=== PATIENT | female | born 1960 | race Caucasian/White ===

== ENCOUNTER → 2017-10-07 11:17 | Outpatient (CLI) | payer OTHER, SELFPAY ==
[2017-10-07 12:29] LABS: Add Manual Diff / Slide Review NO; Basophils Percent Auto 0.7 % (0-2); Eosinophils Percent Auto 0.6 % (2-4); Hematocrit 37.8 % (36-46); Hemoglobin 13.2 g/dL (12.0-16.0); Lymphocytes Percent Auto 17.7 % (25-40); Mean Corpuscular HGB Conc 34.9 % (30-36); Mean Corpuscular Hemoglobin 32.1 PG (26-34); Mean Corpuscular Volume 91.9 fL (80-100); Monocytes Percent Auto 9.5 % (3-14); Neutrophils Absolute Auto 2300 /uL (3000-5900); Neutrophils Percent Auto 71.5 % (50-75); Platelet Count 191 X10^3/uL (150-400); Red Blood Cell Count 4.11 X10^6/uL (4.0-5.2); White Blood Cell Count 3.3 X10^3/uL (4.5-11.0)
[2017-10-07 12:41] LABS: Appearance Urine UA CLEAR; Bilirubin Urine UA NEGATIVE (NEGATIVE); Color Urine UA YELLOW; Glucose Urine UA NEGATIVE (Normal); Ketones Urine UA NEGATIVE (NEGATIVE); Leukocyte Esterase Urine UA NEGATIVE (NEGATIVE); Nitrite Urine UA NEGATIVE (NEGATIVE); Occult Blood Urine UA NEGATIVE (Negative); Protein Urine UA NEGATIVE (Negative); Specific Gravity Urine UA <=1.005 (1.000-1.035); Urobilinogen Urine UA 0.2 E.U./dL (0.2)
[2017-10-07 12:52] LABS: Urine Comments Microscopic Normal
[2017-10-07 12:58] LABS: Alanine Aminotransferase 51 IU/L (9-52); Albumin 4.6 g/dL (3.5-5.0); Albumin Globulin Ratio 1.3 (1.0-2.8); Alkaline Phosphatase 52 U/L (38-126); Aspartate Aminotransferase 46 IU/L (14-36); BUN Creatinine Ratio 21.4 (6-22); Bilirubin Total 0.6 mg/dL (0.2-1.3); Calcium 9.5 mg/dL (8.4-10.2); Estimated Glomerular Filt Rate > 60.0 mL/min (>60); Globulin 3.5 g/dL (1.7-4.1); Glucose 80 mg/dL (70-100); HEMOLYSIS < 15 (0-50); Potassium 4.2 mmol/L (3.4-5.1); Rheumatoid Factor 17.9 IU/mL (<12.0); Sodium 134 mmol/L (137-145); Total Protein 8.1 g/dL (6.3-8.2)
[2017-10-07 13:00] LABS: C-Reactive Protein Quant < 0.5 mg/dL (<1.0); Erythrocyte Sedimentation Rate 25 MM/HR (0-20)
[2017-10-09 15:39] LABS: Complement C3 90 mg/dL (83-193)
[2017-10-09 15:44] LABS: Immunoglobulin A 170 mg/dL (81-463); Immunoglobulin G 1785 mg/dL (694-1618); Immunoglobulin M, Quantitative 129 mg/dL (48-271)
[2017-10-16 12:30] LABS: Albumin 4.3 g/dL (3.8-4.8); Alpha 1 Globulin 0.3 g/dL (0.2-0.3); Beta 1 Globulin 0.4 g/dL (0.4-0.6); Gamma Globulin 1.7 g/dL (0.8-1.7); Protein, Total 7.7 g/dL (6.1-8.1)
[2017-10-19 13:17] LABS: Alpha 2 Globulin 0.7
== END ==
PROVIDERS: PCP Family Medicine; Visit Provider Family Medicine
DX: M35.00 Sjogren syndrome, unspecified (principal); D70.9 Neutropenia, unspecified; I73.00 Raynaud's syndrome without gangrene; R77.8 Other specified abnormalities of plasma proteins
CPT/HCPCS: 36415; 80053; 81001; 82595; 82784; 84155; 84165; 85025; 85651; 86140; 86160; 86335; 86430

== ENCOUNTER → 2017-10-13 08:45 | Outpatient (CLI) | payer OTHER, SELFPAY | PROVIDERS: PCP Family Medicine; Visit Provider Family Medicine | DX: D70.9 Neutropenia, unspecified (principal); M35.00 Sjogren syndrome, unspecified | CPT/HCPCS: 82595 ==

== ENCOUNTER → 2018-04-19 08:42 | Outpatient (CLI) | payer OTHER, SELFPAY ==
[2018-04-19 08:58] LABS: Bacteria Urine None Seen
[2018-04-19 09:28] LABS: Add Manual Diff / Slide Review NO; Eosinophils Percent Auto 2.7 % (2-4); Hematocrit 38.4 % (36-46); Hemoglobin 12.9 g/dL (12.0-16.0); Lymphocytes Percent Auto 27.1 % (25-40); Mean Corpuscular HGB Conc 33.5 % (30-36); Mean Corpuscular Hemoglobin 31.1 PG (26-34); Mean Corpuscular Volume 93.1 fL (80-100); Monocytes Percent Auto 14.6 % (3-14); Neutrophils Absolute Auto 1200 /uL (3000-5900); Neutrophils Percent Auto 54.6 % (50-75); Platelet Count 197 X10^3/uL (150-400); Red Blood Cell Count 4.13 X10^6/uL (4.0-5.2); Red Cell Distribution Width 13.3 % (11.6-14.8); White Blood Cell Count 2.2 X10^3/uL (4.5-11.0)
[2018-04-19 09:42] LABS: Alanine Aminotransferase 45 IU/L (9-52); Albumin 4.6 g/dL (3.5-5.0); Albumin Globulin Ratio 1.2 (1.0-2.8); Alkaline Phosphatase 43 U/L (38-126); Aspartate Aminotransferase 40 IU/L (14-36); BUN Creatinine Ratio 15.7 (6-22); Bilirubin Total 0.3 mg/dL (0.2-1.3); Blood Urea Nitrogen 11 mg/dL (7-17); Calcium 9.1 mg/dL (8.4-10.2); Carbon Dioxide 29 mmol/L (22-32); Chloride 102 mmol/L (98-107); Estimated Glomerular Filt Rate > 60.0 mL/min (>60); Globulin 3.7 g/dL (1.7-4.1); Glucose 93 mg/dL (70-100); HEMOLYSIS < 15 (0-50); Potassium 3.8 mmol/L (3.4-5.1); Sodium 141 mmol/L (137-145); Total Protein 8.3 g/dL (6.3-8.2)
[2018-04-19 09:46] LABS: High Sensitivity CRP - Cardiac 0.7 mg/L (1.0-3.0); Rheumatoid Factor 14.1 IU/mL (<12.0)
[2018-04-19 10:03] LABS: Erythrocyte Sedimentation Rate 45 MM/HR (0-20)
[2018-04-19 12:21] LABS: Appearance Urine UA CLEAR; Bilirubin Urine UA NEGATIVE (NEGATIVE); Color Urine UA YELLOW; Glucose Urine UA NEGATIVE (Normal); Ketones Urine UA NEGATIVE (NEGATIVE); Leukocyte Esterase Urine UA NEGATIVE (NEGATIVE); Nitrite Urine UA NEGATIVE (Negative); Occult Blood Urine UA NEGATIVE (Negative); Protein Urine UA NEGATIVE (Negative); Specific Gravity Urine UA <=1.005 (1.000-1.035); Urobilinogen Urine UA 0.2 E.U./dL (0.2)
[2018-04-19 13:08] LABS: Culture Indicated Urine Cult Not Indicated; RBC Urine 0-1/HPF (0-5/HPF); Squamous Epithelial Cell Urine 0-1 /HPF; Urine Comments Microscopic Normal; WBC Urine 0-1/HPF (0-5/HPF)
[2018-04-21 14:39] LABS: Complement C3 99 mg/dL (83-193)
[2018-04-21 14:43] LABS: Immunoglobulin A 180 mg/dL (81-463); Immunoglobulin G, Quantitative 1770 mg/dL (694-1618); Immunoglobulin M, Quantitative 134 mg/dL (48-271)
[2018-04-22 14:00] LABS: Albumin 4.2 g/dL (3.8-4.8); Alpha 1 Globulin 0.3 g/dL (0.2-0.3); Alpha 2 Globulin 0.7 g/dL (0.5-0.9); Beta 1 Globulin 0.4 g/dL (0.4-0.6); Gamma Globulin 1.7 g/dL (0.8-1.7); Protein, Total 7.6 g/dL (6.1-8.1)
[2018-04-24 23:31] LABS: Cryoglobulin, Qualitative NEGATIVE
== END ==
PROVIDERS: PCP Family Medicine; Visit Provider Family Medicine
DX: M35.00 Sjogren syndrome, unspecified (principal); I73.00 Raynaud's syndrome without gangrene; D70.9 Neutropenia, unspecified; R77.8 Other specified abnormalities of plasma proteins
CPT/HCPCS: 36415; 80053; 81001; 82595; 82784; 84155; 84165; 85025; 85651; 86140; 86160; 86335; 86430

== ENCOUNTER → 2018-09-01 10:37 | Outpatient (CLI) | payer OTHER, SELFPAY ==
--- NOTE | 2018-09-01 | DI.US.S_ITS ---
PROCEDURE: US ABDOMEN COMPLETE INDICATIONS: RIGHT UPPER QUADRANT PAIN TECHNIQUE: Real-time scanning was performed of the abdominal and retroperitoneal organs, with image documentation. COMPARISON: None. FINDINGS: Liver: Liver is normal in size and homogeneous in echotexture. Gallbladder: No gallstones identified. Normal gallbladder wall. No pericholecystic fluid. Negative sonographic Aguila sign. Biliary ducts: Intrahepatic bile ducts are non-dilated. Extrahepatic bile duct caliber measures 3.0 mm. Normal is 6-7 mm or less in diameter, or 10 mm or less post-cholecystectomy. Pancreas: Visualized portions of the pancreas are sonographically normal. Spleen: Spleen is normal in size and homogeneous in echotexture. Kidneys: Kidneys are normal in size and echotexture. Right kidney measures 11.0 cm long; left kidney measures 9.7 cm long. No hydronephrosis or nephrolithiasis. No solid masses. Right extrarenal pelvis incidentally noted. Aorta: Visualized aorta is normal in caliber at less than 3 cm. Iliacs: Proximal common iliac arteries are normal in caliber at less than 2.5 cm. IVC: Intrahepatic inferior vena cava is patent. Miscellaneous: No free abdominal fluid. IMPRESSION: No source for right upper quadrant pain identified sonographically. Dictated by: Yves GROVES Interpreted: Raya Baker MD on 09/01/2018 at 13:09 Approved by: Raya Baker MD, PhD on 09/01/2018 at 17:34
== END ==
PROVIDERS: PCP Family Medicine; Visit Provider Nurse Practitioner Family
DX: R10.11 Right upper quadrant pain (principal)
CPT/HCPCS: 76700

== ENCOUNTER → 2018-12-07 12:38 | Outpatient (CLI) | payer OTHER, SELFPAY ==
--- NOTE | 2018-12-07 | DI.MRI.S_ITS ---
PROCEDURE: MR HAND LT WO/W CON INDICATIONS: Left hand pain TECHNIQUE: Coronal and axial T1 spin echo and T2 fast spin echo with fat saturation. Post-contrast coronal and axial T1 spin echo with fat saturation images through the left hand and wrist. COMPARISON: None. FINDINGS: Image quality: Diagnostic. Bones: There is no acute fracture, dislocation, or suspicious osseous lesion involving the osseous structures of the left hand. No abnormal osseous enhancement is appreciated. Mild degenerative changes of the left hand are present, most pronounced involving the joints of the thumb. Small rounded foci of subtle enhancement with corresponding mild edema are present involving the heads of the 1st, 3rd, 4th, and 5th metacarpals. Soft tissues: No soft tissue masses or loculated fluid collections are appreciated. There is moderate edema noted involving the extensor carpi ulnaris tendon sheath with corresponding enhancement. No definite additional areas of synovial enhancement are appreciated involving the other tendon sheaths. Otherwise, the flexor and extensor tendons are within normal limits. No significant muscle atrophy involving the intrinsic muscles of the hand are present. Please note that the ligamentous structures of the hand are not adequately evaluated. No significant joint effusions are appreciated. IMPRESSION: 1. Mild degenerative changes of the hands are most pronounced involving the joint of the thumb. 2. Subtle erosive changes involving the 1st, 3rd, 4th, and 5th metacarpals may be related to conventional osteoarthritis. However, clinical correlation to exclude an inflammatory arthropathy is recommended. 3. Mild edema and enhancement of the extensor carpi ulnaris tendon sheath may represent tenosynovitis. Clinical correlation to exclude an inflammatory process is recommended. Dictated by: Kaden Morales M.D. on 12/08/2018 at 8:26 Approved by: Kaden Morales M.D. on 12/08/2018 at 8:29
--- NOTE | 2018-12-07 | DI.MRI.S_ITS ---
PROCEDURE: MR HAND RT WO/W CON INDICATIONS: RIGHT HAND PAIN TECHNIQUE: Coronal and axial T1 spin echo and T2 fast spin echo with fat saturation. Post-contrast coronal and axial T1 spin echo with fat saturation images through the right hand and wrist. COMPARISON: None. FINDINGS: Image quality: Diagnostic. Bones and joints: No acute fracture, dislocation, or suspicious osseous lesion is evident involving the osseous structures of the right hand. Mild to moderate degenerative changes of the hand are most pronounced involving the 2nd metacarpophalangeal joint. Degenerative cystic changes versus solutions involving the heads of the 1st, 2nd, 3rd, and 4th metacarpals is present with corresponding marrow edema and enhancement. Moderate synovial enhancement involving the 2nd and 5th metacarpophalangeal joints is present without a large joint effusion. Soft tissues: The no soft tissue masses or loculated fluid collections are identified. No suspicious soft tissue enhancement is appreciated. Again, there is synovial enhancement involving the 2nd and 5th metacarpophalangeal joints. No large joint effusions are present. Note is also made of mild increased signal and peritendinous edema/enhancement of the extensor carpi ulnaris tendon. No significant muscle atrophy is evident involving the intrinsic muscles of the hand. IMPRESSION: 1. Mild to moderate degenerative changes of the right hand are most pronounced involving the 2nd metacarpophalangeal joint. 2. Probable erosive changes involving the heads of the 1st through 4th metacarpals is suspicious for an inflammatory arthropathy. 3. Moderate synovial enhancement involving the 2nd and 5th metacarpophalangeal joints also suspicious for an inflammatory process. Dictated by: Kaden Morales M.D. on 12/08/2018 at 9:17 Approved by: Kaden Morales M.D. on 12/08/2018 at 9:22
--- NOTE | 2018-12-07 | DI.MRI.S_ITS ---
PROCEDURE: MR WRIST RT WO/W CON INDICATIONS: RIGHT WRIST PAIN TECHNIQUE: Noncontrast coronal proton density fast spin echo and T2 fast spin echo with fat saturation; coronal 3-D gradient echo, axial T1 spin echo and T2 fast spin echo with fat saturation, axial T1 spin echo with fat saturation, sagittal T1 spin echo through the wrist. Post-contrast axial, coronal, and sagittal T1 spin echo with fat saturation through the wrist. COMPARISON: [facility], MR, MR WRIST LT WO/W CON, 12/07/2018, 13:48. FINDINGS: Image quality: Diagnostic. Bones: No acute fracture, dislocation, or suspicious osseous lesion is identified involving the osseous structures of the right wrist. No abnormal osseous enhancement is present. Bony alignment is within normal limits. No significant degenerative changes of the wrist are evident. Mild degenerative changes are present involving the basal joint of the thumb. Subtle marrow edema is identified involving the proximal pole of the scaphoid, triquetrum, and the lunate. There may be minimal degenerative cystic change involving the triquetrum and lunate. No significant joint effusions are present. Carpal ligaments: Evaluation of the extrinsic and intrinsic ligaments of the wrist is difficult without intra-articular contrast. No full-thickness tears involving the scapholunate or lunotriquetral ligaments is suspected. No acute injuries involving the dorsal or volar extrinsic ligaments is present. Triangular fibrocartilage complex: Evaluation of the triangular fibrocartilage complex is suboptimal without intra-articular contrast. Slight heterogeneity of the disc is present along the periphery without a discrete tear evident. The meniscal homolog appears to be intact. There is mild increased signal involving the extensor carpi ulnaris tendon at the level of the ulnar styloid process. Moderate peritendinitis edema and corresponding enhancement is evident involving the adjacent soft tissues and the tendon sheath. Tendons and soft tissues: No soft tissue masses or enhancing masses are present within the wrist. Again, the extensor carpi ulnaris tendon is abnormal, as described above. The remainder of the extensor and flexor tendons of the wrist are within normal limits. There is slight convex bulge of the flexor retinaculum through the carpal tunnel with thickening and increased signal noted involving the median nerve. No minor streaky ence canal is slightly prominent, but otherwise unremarkable. No large ganglion cysts are evident. IMPRESSION: 1. 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 2. Questionable subtle erosive changes involving the lunate and triquetrum. 3. Mild to moderate extensor carpi ulnaris tendinopathy with corresponding edema and enhancement of the tendon sheath and peritendinous soft tissues may represent tenosynovitis. Local correlation to exclude an inflammatory process is recommended. 4. Prominence of the median nerve within the carpal tunnel. Clinical correlation to exclude carpal tunnel syndrome is recommended. Dictated by: Kaden Morales M.D. on 12/08/2018 at 8:46 Approved by: Kaden Morales M.D. on 12/08/2018 at 8:58
--- NOTE | 2018-12-07 | DI.MRI.S_ITS ---
PROCEDURE: MR WRIST LT WO/W CON INDICATIONS: LEFT WRIST PAIN TECHNIQUE: Noncontrast coronal proton density fast spin echo and T2 fast spin echo with fat saturation; coronal 3-D gradient echo, axial T1 spin echo and T2 fast spin echo with fat saturation, axial T1 spin echo with fat saturation, sagittal T1 spin echo through the wrist. Post-contrast axial, coronal, and sagittal T1 spin echo with fat saturation through the wrist. COMPARISON: None. FINDINGS: Image quality: Diagnostic. Bones: No acute fracture, dislocation, or suspicious osseous lesion is evident involving the osseous structures of the wrist. Bony alignment is within normal limits. However, there is slight ulnar minus variance by approximately 2-3 mm. No significant joint effusions are present. There mild degenerative changes noted involving the basal joint of the thumb. Cystic changes involving the base of the trapezium are present with corresponding mild marrow edema. There is also marrow edema and possible subtle cystic change involving the lunate. No suspicious osseous enhancement is present. No significant joint effusions are evident. Carpal ligaments: Evaluation of the extrinsic and intrinsic ligaments of the wrist is difficult without intra-articular contrast. However, there is mild heterogeneity noted involving the scapholunate ligament with slight increased signal present. A similar appearance, to a lesser degree, is present involving the lunotriquetral ligament. No complete tears are evident. No acute injuries are evident involving the extrinsic ligaments of the wrist. Triangular fibrocartilage complex: Evaluation of the triangular fibrocartilage complex is suboptimal without intra-articular contrast. However, no definite full-thickness tear of the triangular fibrocartilage disc is evident. The meniscal homolog appears to be within normal limits. There is increased signal and thickening involving the extensor carpi ulnaris tendon with prominent peritendinous edema and corresponding enhancement. Tendons and soft tissues: Again, there is increased signal involving the extensor carpi ulnaris tendon with corresponding peritendinous edema and enhancement. No additional areas of significant soft tissue enhancement or edema are present. There is slight increased signal evident involving the extensor tendons of the 1st extensor compartment. Otherwise, the remainder of the extensor and flexor tendons of the hand are within normal limits. No fluid collections are appreciated. The median nerve is mildly enlarged through the region of the carpal tunnel. There is slight convex bowing of the flexor retinaculum. No significant atrophy is appreciated involving the intrinsic muscles of the wrist. No large ganglion cysts are evident. IMPRESSION: 1. Mild degenerative changes of the wrist. 2. Cystic changes involving the trapezium and lunate may represent developing erosions from an inflammatory arthropathy versus degenerative cystic change from the conventional osteoarthritis. Please correlate clinically. 3. Mild to moderate extensor carpi ulnaris tendinopathy with corresponding prominent edema and enhancement of the tendon sheath and peritendinous soft tissues. This is suspicious for possible inflammatory process and clinical correlation is recommended. 4. Heterogeneity of the scapholunate and lunotriquetral ligaments without full-thickness tears. 5. Mild ulnar minus variance. 6. Prominence of the median nerve through the carpal tunnel. Clinical correlation to exclude carpal tunnel syndrome is recommended. Dictated by: Kaden Morales M.D. on 12/08/2018 at 8:33 Approved by: Kaden Morales M.D. on 12/08/2018 at 8:39
== END ==
PROVIDERS: PCP Family Medicine; Visit Provider Internal Medicine Rheumatology
DX: M79.641 Pain in right hand (principal); M79.642 Pain in left hand; M25.531 Pain in right wrist; M25.532 Pain in left wrist
CPT/HCPCS: 73220; 73223; A9579

== ENCOUNTER → 2019-03-07 09:13 | Outpatient (CLI) | payer OTHER, SELFPAY ==
[2019-03-07 09:30] LABS: RBC Urine None Seen (0-5/HPF); WBC Urine None Seen (0-5/HPF)
[2019-03-07 09:53] LABS: Add Manual Diff / Slide Review NO; Basophils Absolute Auto 0 /uL (0-100); Basophils Percent Auto 1.1 % (0-2); Eosinophils Absolute Auto 100 /uL (0-450); Eosinophils Percent Auto 2.2 % (2-4); Hematocrit 38.2 % (36-46); Lymphocytes Absolute Auto 400 /uL (1100-4500); Lymphocytes Percent Auto 16.5 % (25-40); Mean Corpuscular HGB Conc 33.9 % (30-36); Mean Corpuscular Hemoglobin 31.3 PG (26-34); Mean Corpuscular Volume 92.4 fL (80-100); Monocytes Absolute Auto 300 /uL (0-900); Monocytes Percent Auto 13.4 % (3-14); Neutrophils Absolute Auto 1600 /uL (1500-7000); Neutrophils Percent Auto 66.8 % (50-75); Platelet Count 189 X10^3/uL (150-400); Red Blood Cell Count 4.14 X10^6/uL (4.0-5.2); Red Cell Distribution Width 13.7 % (11.6-14.8); White Blood Cell Count 2.4 X10^3/uL (4.5-11.0)
[2019-03-07 10:28] LABS: Erythrocyte Sedimentation Rate 19 MM/HR (0-20)
[2019-03-07 10:42] LABS: Alanine Aminotransferase 40 IU/L (9-52); Albumin 4.8 g/dL (3.5-5.0); Albumin Globulin Ratio 1.4 (1.0-2.8); Alkaline Phosphatase 44 U/L (38-126); Aspartate Aminotransferase 39 IU/L (14-36); BUN Creatinine Ratio 18.3 (6-22); Bilirubin Total 0.5 mg/dL (0.2-1.3); Blood Urea Nitrogen 11 mg/dL (7-17); Calcium 9.6 mg/dL (8.4-10.2); Carbon Dioxide 27 mmol/L (22-32); Chloride 98 mmol/L (98-107); Estimated Glomerular Filt Rate > 60.0 mL/min (>60); Globulin 3.4 g/dL (1.7-4.1); Glucose 84 mg/dL (70-100); HEMOLYSIS < 15 (0-50); Sodium 137 mmol/L (137-145); Total Protein 8.2 g/dL (6.3-8.2)
[2019-03-07 10:48] LABS: High Sensitivity CRP - Cardiac 0.7 mg/L (1.0-3.0); Rheumatoid Factor 13.5 IU/mL (<12.0)
[2019-03-07 11:40] LABS: Appearance Urine UA CLEAR; Bilirubin Urine UA NEGATIVE (NEGATIVE); Color Urine UA YELLOW; Glucose Urine UA NEGATIVE (Negative); Ketones Urine UA NEGATIVE (NEGATIVE); Leukocyte Esterase Urine UA NEGATIVE (NEGATIVE); Nitrite Urine UA NEGATIVE (Negative); Occult Blood Urine UA NEGATIVE (Negative); Protein Urine UA NEGATIVE (Negative); Specific Gravity Urine UA <=1.005 (1.000-1.035); Urobilinogen Urine UA 0.2 E.U./dL (0.2)
[2019-03-07 11:59] LABS: pH Urine UA 7.5 (4.5-8.0)
[2019-03-07 12:00] LABS: Bacteria Urine Few (2-10); Culture Indicated Urine Cult Not Indicated; Squamous Epithelial Cell Urine 1-5 /HPF (0-5/HPF)
[2019-03-09 14:07] LABS: Complement C3 102 mg/dL (83-193)
[2019-03-09 14:11] LABS: Immunoglobulin A 186 mg/dL (47-310); Immunoglobulin G, Quantitative 1748 mg/dL (600-1640); Immunoglobulin M, Quantitative 124 mg/dL (50-300)
[2019-03-10 17:52] LABS: Albumin 100 %; Protein/ Creatinine Ratio 247 mg/g creat (21-161); Total Urine Protein 4 mg/dL (5-24); Urine Creatinine, Random 16 mg/dL (20-275)
[2019-03-13 10:54] LABS: Albumin 4.5 g/dL (3.8-4.8); Alpha 1 Globulin 0.3 g/dL (0.2-0.3); Alpha 2 Globulin 0.7 g/dL (0.5-0.9); Beta 1 Globulin 0.4 g/dL (0.4-0.6); Gamma Globulin 1.7 g/dL (0.8-1.7); Protein, Total 7.9 g/dL (6.1-8.1)
[2019-03-13 11:03] LABS: Cryoglobulin, Qualitative NEGATIVE
== END ==
PROVIDERS: PCP Family Medicine; Visit Provider Family Medicine
DX: M35.00 Sjogren syndrome, unspecified (principal); I73.00 Raynaud's syndrome without gangrene; D70.9 Neutropenia, unspecified; R77.8 Other specified abnormalities of plasma proteins
CPT/HCPCS: 36415; 80053; 81001; 82595; 82784; 84155; 84156; 84165; 84166; 85025; 85651; 86140; 86160; 86430

== ENCOUNTER → 2019-03-21 10:33 | Outpatient (CLI) | payer OTHER, SELFPAY ==
[2019-03-21 15:11] LABS: Creatinine Urine Random 9.8 mg/dL; Protein (Total) Urine Random 15 mg/dL (0-12); Protein Creatinine Ratio Urine 1.53 GRAM/24H
== END ==
PROVIDERS: PCP Family Medicine; Visit Provider Internal Medicine Rheumatology
DX: M05.79 Rheumatoid arthritis with rheumatoid factor of multiple sites without organ or systems involvement (principal); R80.8 Other proteinuria
CPT/HCPCS: 82570; 84156

== ENCOUNTER → 2019-08-01 14:12 | Outpatient (CLI) | payer OTHER, SELFPAY ==
--- NOTE | 2019-08-01 | DI.US.S_ITS ---
LIMITED ULTRASOUND OF LEFT BREAST: 08/01/2019 CLINICAL: Focal left breast pain. Comparison is made to exams dated: 08/01/2019 mammogram - [facility], 01/14/2017 mammogram, 03/26/2015 mammogram, and 11/29/2012 mammogram - [facility]. Real-time ultrasound of the left breast upper outer quadrant was performed. Mccall scale images of the real-time examination were reviewed. No significant abnormalities were seen sonographically in the left breast. Specifically, no finding to correspond to the patient's pain. IMPRESSION: NEGATIVE There is no mammographic or sonographic evidence of malignancy. Return to annual mammogram screening schedule is recommended. Findings and recommendations were conveyed to the patient at time of exam. This exam was interpreted at Station ID: [id number]. Electronically Signed By: Angy garcia/:08/01/2019 15:41:54 letter sent: Normal Exam Ultrasound BI-RADS: 1 Negative
--- NOTE | 2019-08-01 14:30 | DI.MG.S_ITS ---
BILATERAL DIGITAL DIAGNOSTIC MAMMOGRAM 3D/2D: 08/01/2019 CLINICAL: Left breast pain. Comparison is made to exams dated: 01/14/2017 mammogram, 03/26/2015 mammogram, and 11/29/2012 mammogram - [facility]. The tissue of both breasts is extremely dense, which lowers the sensitivity of mammography. No significant masses, calcifications, or other findings are seen in either breast. Specifically, no finding to correspond to the patient's pain. IMPRESSION: INCOMPLETE: NEEDS ADDITIONAL IMAGING EVALUATION There is no abnormality seen in the left breast to correspond with the pain in the superior lateral quadrant, however, ultrasound is recommended. This was performed immediately following this exam. This exam was interpreted at Station ID: [id number]. NOTE: For mammograms, a report in lay terms will be sent to the patient. Approximately 15% of breast malignancies will not be visualized mammographically. In the management of a palpable breast mass, a negative mammogram must not discourage biopsy of a clinically suspicious lesion. Electronically Signed By: Angy garcia/:08/01/2019 15:32:14 ACR BI-RADS Category 0: Incomplete 3340F
== END ==
PROVIDERS: PCP Family Medicine; Referring Provider Family Medicine; Visit Provider Family Medicine
DX: R92.8 Other abnormal and inconclusive findings on diagnostic imaging of breast (principal); N64.4 Mastodynia
CPT/HCPCS: 76642; 77066; G0279

== ENCOUNTER → 2020-10-11 12:47 | Outpatient (CLI) | payer OTHER, SELFPAY ==
--- NOTE | 2020-10-11 12:50 | DI.US.S_ITS ---
ULTRASOUND OF LEFT BREAST: 10/11/2020 CLINICAL: Focal left breast pain. Comparison is made to exams dated: 10/11/2020 mammogram, 08/01/2019 ultrasound, 08/01/2019 mammogram - [facility], 01/14/2017 mammogram, and 01/14/2017 mammogram - [facility]. Doppler ultrasound of the left breast was performed. Mccall scale images of the real-time examination were reviewed. No abnormality which corresponds with the area of pain is identified. IMPRESSION: NEGATIVE There is no sonographic evidence of malignancy. There is no abnormality seen in the left breast to correspond with the pain at 1 o'clock, however, clinical correlation is recommended. A 1 year screening mammogram is recommended. This exam was interpreted at Station ID: [id number]. Electronically Signed By: Kenney Tompkins acr/:10/11/2020 17:35:04 letter sent: Clinical Evaluation Ultrasound BI-RADS: 1 Negative
--- NOTE | 2020-10-11 12:50 | DI.MG.S_ITS ---
BILATERAL DIGITAL DIAGNOSTIC MAMMOGRAM 3D/2D: 10/11/2020 CLINICAL: Pain in the left breast. Comparison is made to exams dated: 08/01/2019 mammogram - [facility], 01/14/2017 mammogram, 01/14/2017 mammogram, and 03/26/2015 mammogram - [facility]. The tissue of both breasts is extremely dense, which lowers the sensitivity of mammography. No significant masses, calcifications, or other findings are seen in either breast. No abnormality which corresponds with the area of pain is identified. IMPRESSION: INCOMPLETE: NEEDS ADDITIONAL IMAGING EVALUATION There is no abnormality seen in the left breast to correspond with the pain in the upper outer quadrant, however, ultrasound is recommended. This exam was interpreted at Station ID: [id number]. NOTE: For mammograms, a report in lay terms will be sent to the patient. Approximately 15% of breast malignancies will not be visualized mammographically. In the management of a palpable breast mass, a negative mammogram must not discourage biopsy of a clinically suspicious lesion. Electronically Signed By: Kenney Tompkins acr/:10/11/2020 14:11:31 Entry: - 10/14/2020 10:08:03 ACR BI-RADS Category 0: Incomplete [id number]
== END ==
PROVIDERS: PCP Family Medicine; Referring Provider Physician Assistant Medical; Visit Provider Physician Assistant Medical
DX: R92.2 Inconclusive mammogram (principal); N64.4 Mastodynia
CPT/HCPCS: 76642; 77066; G0279

== ENCOUNTER → 2021-01-17 09:48 | Outpatient (CLI) | payer OTHER, SELFPAY ==
[2021-01-17 21:50] LABS: COVID19 - ORCAS (NP or Nasal) Negative (Negative)
== END ==
PROVIDERS: PCP Family Medicine; Visit Provider Family Medicine
DX: Z20.822 Contact with and (suspected) exposure to COVID-19 (principal)
CPT/HCPCS: U0003

== ENCOUNTER → 2021-01-20 08:50 | Outpatient (CLI) | payer OTHER, SELFPAY ==
[2021-01-20 21:02] LABS: COVID19 - ORCAS (NP or Nasal) Negative (Negative)
== END ==
PROVIDERS: PCP Family Medicine; Referring Provider Physician Assistant; Visit Provider Physician Assistant
DX: Z20.822 Contact with and (suspected) exposure to COVID-19 (principal)
CPT/HCPCS: U0003

== ENCOUNTER → 2021-01-31 09:19 | Outpatient (CLI) | payer OTHER, SELFPAY ==
[2021-01-31 09:45] LABS: Bacteria Urine None Seen; RBC Urine None Seen (0-5/HPF)
[2021-01-31 10:46] LABS: Add Manual Diff / Slide Review NO; Basophils Absolute Auto 0 /uL (0-100); Basophils Percent Auto 0.9 % (0-2); Eosinophils Absolute Auto 100 /uL (0-450); Eosinophils Percent Auto 2.8 % (2-4); Hematocrit 39.6 % (36-46); Hemoglobin 13.2 g/dL (12.0-16.0); Lymphocytes Absolute Auto 500 /uL (1100-4500); Lymphocytes Percent Auto 18.9 % (25-40); Mean Corpuscular HGB Conc 33.4 % (30-36); Mean Corpuscular Hemoglobin 31.1 PG (26-34); Mean Corpuscular Volume 93.3 fL (80-100); Monocytes Absolute Auto 300 /uL (0-900); Monocytes Percent Auto 13.2 % (3-14); Neutrophils Absolute Auto 1700 /uL (1500-7000); Neutrophils Percent Auto 64.2 % (50-75); Platelet Count 195 X10^3/uL (150-400); Red Blood Cell Count 4.25 X10^6/uL (4.0-5.2); Red Cell Distribution Width 12.8 % (11.6-14.8); White Blood Cell Count 2.6 X10^3/uL (4.5-11.0)
[2021-01-31 11:09] LABS: Alanine Aminotransferase 37 IU/L (<35); Albumin 4.8 g/dL (3.5-5.0); Albumin Globulin Ratio 1.5 (1.0-2.8); Alkaline Phosphatase 45 U/L (38-126); Aspartate Aminotransferase 38 IU/L (14-36); BUN Creatinine Ratio 15.2 (6-22); Bilirubin Total 0.5 mg/dL (0.2-1.3); Blood Urea Nitrogen 10 mg/dL (7-17); C-Reactive Protein Quant < 0.5 mg/dL (<1.0); Calcium 9.9 mg/dL (8.4-10.2); Carbon Dioxide 26 mmol/L (22-32); Chloride 101 mmol/L (98-107); Estimated Glomerular Filt Rate > 60.0 mL/min (>60); Globulin 3.1 g/dL (1.7-4.1); Glucose 82 mg/dL (70-100); HEMOLYSIS < 15 (0-50); Potassium 4.2 mmol/L (3.4-5.1); Sodium 134 mmol/L (137-145); Total Protein 7.9 g/dL (6.3-8.2)
[2021-01-31 11:10] LABS: Rheumatoid Factor 10.1 IU/mL (<12.0)
[2021-01-31 11:35] LABS: Erythrocyte Sedimentation Rate 14 MM/HR (0-20)
[2021-01-31 12:47] LABS: Bilirubin Urine UA NEGATIVE (NEGATIVE); Color Urine UA YELLOW; Glucose Urine UA NEGATIVE (Negative); Ketones Urine UA NEGATIVE (NEGATIVE); Leukocyte Esterase Urine UA 1+ (NEGATIVE); Nitrite Urine UA NEGATIVE (Negative); Occult Blood Urine UA NEGATIVE (Negative); Protein Urine UA NEGATIVE (Negative); Specific Gravity Urine UA <=1.005 (1.000-1.035); Urobilinogen Urine UA 0.2 E.U./dL (0.2)
[2021-01-31 13:05] LABS: Appearance Urine UA CLOUDY; pH Urine UA 7.5 (4.5-8.0)
[2021-01-31 13:11] LABS: Culture Indicated Urine Specimen Cultured; WBC Urine 5-10/HPF (0-5/HPF)
[2021-01-31 16:01] LABS: Creatinine Urine Random 16.7 mg/dL; Protein (Total) Urine Random 13 mg/dL (0-12); Protein Creatinine Ratio Urine 0.77 GRAM/24H
[2021-02-01 07:58] LABS: Complement C3 99 mg/dL (82-167); Immunoglobulin A 163 mg/dL (87-352); Immunoglobulin G, Quantitative 1524 mg/dL (586-1602); Immunoglobulin M, Quantitative 97 mg/dL (26-217)
[2021-02-01 20:07] LABS: DNA (DS) Antibody <1 IU/mL (0-9)
[2021-02-01 21:52] LABS: Free Kappa Lt Chains, Serum 23.3 mg/L (3.3-19.4)
[2021-02-04 12:53] LABS: M-Spike % Not Observed % (Not Observed); Urine Total Protein <4.0 mg/dL (Not Estab.)
[2021-02-04 15:13] LABS: Albumin 4.2 g/dL (2.9-4.4); Alpha-1-Globulin 0.2 g/dL (0.0-0.4); Alpha-2-Globulin 0.6 g/dL (0.4-1.0); Gamma Globulin 1.6 g/dL (0.4-1.8); Globulin Total 3.3 g/dL (2.2-3.9); Protein, Total 7.5 g/dL (6.0-8.5)
== END ==
PROVIDERS: PCP Family Medicine; Referring Provider Internal Medicine Rheumatology; Visit Provider Internal Medicine Rheumatology
DX: M05.79 Rheumatoid arthritis with rheumatoid factor of multiple sites without organ or systems involvement (principal); M35.01 Sjogren syndrome with keratoconjunctivitis; Z79.899 Other long term (current) drug therapy; R77.8 Other specified abnormalities of plasma proteins; R76.8 Other specified abnormal immunological findings in serum
CPT/HCPCS: 36415; 80053; 81001; 82570; 82784; 83883; 84155; 84156; 84165; 84166; 85025; 85651; 86140; 86160; 86225; 86430; 87086

== ENCOUNTER → 2021-07-11 10:24 | Outpatient (CLI) | payer OTHER, SELFPAY ==
[2021-07-11 11:49] LABS: Add Manual Diff / Slide Review NO; Basophils Absolute Auto 0 /uL (0-100); Basophils Percent Auto 1.1 % (0-2); Eosinophils Absolute Auto 100 /uL (0-450); Eosinophils Percent Auto 3.8 % (2-4); Hematocrit 39.2 % (36-46); Hemoglobin 13.2 g/dL (12.0-16.0); Lymphocytes Absolute Auto 600 /uL (1100-4500); Lymphocytes Percent Auto 24.9 % (25-40); Mean Corpuscular HGB Conc 33.7 % (30-36); Mean Corpuscular Hemoglobin 31.3 PG (26-34); Mean Corpuscular Volume 93.1 fL (80-100); Monocytes Absolute Auto 300 /uL (0-900); Monocytes Percent Auto 11.1 % (3-14); Neutrophils Absolute Auto 1500 /uL (1500-7000); Neutrophils Percent Auto 59.1 % (50-75); Platelet Count 173 X10^3/uL (150-400); Red Blood Cell Count 4.21 X10^6/uL (4.0-5.2); Red Cell Distribution Width 12.7 % (11.6-14.8); White Blood Cell Count 2.6 X10^3/uL (4.5-11.0)
[2021-07-11 11:59] LABS: Appearance Urine UA CLEAR; Bilirubin Urine UA NEGATIVE (NEGATIVE); Color Urine UA YELLOW; Glucose Urine UA NEGATIVE (Negative); Ketones Urine UA NEGATIVE (NEGATIVE); Leukocyte Esterase Urine UA 3+ (NEGATIVE); Nitrite Urine UA NEGATIVE (Negative); Occult Blood Urine UA NEGATIVE (Negative); Protein Urine UA NEGATIVE (Negative); Specific Gravity Urine UA <=1.005 (1.000-1.035); Urobilinogen Urine UA 0.2 E.U./dL (0.2)
[2021-07-11 12:04] LABS: Alanine Aminotransferase 34 IU/L (<35); Albumin 4.8 g/dL (3.5-5.0); Albumin Globulin Ratio 1.4 (1.0-2.8); Alkaline Phosphatase 40 U/L (38-126); Aspartate Aminotransferase 38 IU/L (14-36); BUN Creatinine Ratio 16.9 (6-22); Bilirubin Total 0.6 mg/dL (0.2-1.3); Blood Urea Nitrogen 12 mg/dL (7-17); C-Reactive Protein Quant < 0.5 mg/dL (<1.0); Calcium 9.6 mg/dL (8.4-10.2); Carbon Dioxide 30 mmol/L (22-32); Chloride 98 mmol/L (98-107); Estimated Glomerular Filt Rate > 60.0 mL/min (>60); Globulin 3.4 g/dL (1.7-4.1); Glucose 79 mg/dL (70-100); HEMOLYSIS < 15 (0-50); Potassium 3.9 mmol/L (3.4-5.1); Sodium 134 mmol/L (137-145); Total Protein 8.2 g/dL (6.3-8.2)
[2021-07-11 12:06] LABS: Rheumatoid Factor 11.6 IU/mL (<12.0)
[2021-07-11 12:14] LABS: Bacteria Urine Moderate (10-30); Culture Indicated Urine Specimen Cultured; RBC Urine None Seen (0-5/HPF); Squamous Epithelial Cell Urine 1-5 /HPF (0-5/HPF); WBC Urine 30-100/HPF (0-5/HPF)
[2021-07-11 12:16] LABS: Free T4, Direct Thyroxine 1.14 ng/dL (0.78-2.19)
[2021-07-11 12:21] LABS: Erythrocyte Sedimentation Rate 14 MM/HR (0-20)
[2021-07-11 12:30] LABS: Thyroid Stimulating Hormone 2.56 uIU/mL (0.47-4.68)
[2021-07-15 13:09] LABS: M-Spike % Not Observed % (Not Observed)
[2021-07-17 07:40] LABS: Complement C3 127 mg/dL (82-167)
[2021-07-18 13:00] LABS: Albumin 4.2 g/dL (2.9-4.4); Alpha-1-Globulin 0.3 g/dL (0.0-0.4); Alpha-2-Globulin 0.7 g/dL (0.4-1.0); Gamma Globulin 1.5 g/dL (0.4-1.8); Globulin Total 3.4 g/dL (2.2-3.9); Immunoglobulin A, Serum 185 mg/dL (87-352); Immunoglobulin G,Serum 1569 mg/dL (586-1602); Immunoglobulin M, Serum 109 mg/dL (26-217); Protein, Total 7.6 g/dL (6.0-8.5)
== END ==
PROVIDERS: Family Medicine; PCP Physician Assistant Medical; Referring Provider Internal Medicine Rheumatology; Visit Provider Internal Medicine Rheumatology
DX: M35.01 Sjogren syndrome with keratoconjunctivitis (principal); M05.79 Rheumatoid arthritis with rheumatoid factor of multiple sites without organ or systems involvement; Z51.81 Encounter for therapeutic drug level monitoring; Z79.899 Other long term (current) drug therapy; R53.83 Other fatigue
CPT/HCPCS: 36415; 80053; 81001; 82784; 84155; 84156; 84165; 84166; 84439; 84443; 85025; 85651; 86140; 86160; 86334; 86335; 86430; 87086

== ENCOUNTER → 2022-03-16 11:06 | Outpatient (CLI) | payer OTHER, SELFPAY ==
[2022-03-16 11:57] LABS: Add Manual Diff / Slide Review NO; Basophils Absolute Auto 0 /uL (0-100); Basophils Percent Auto 1.1 % (0-2); Eosinophils Absolute Auto 100 /uL (0-450); Eosinophils Percent Auto 2.2 % (2-4); Hematocrit 36.8 % (36-46); Hemoglobin 12.6 g/dL (12.0-16.0); Lymphocytes Absolute Auto 700 /uL (1100-4500); Lymphocytes Percent Auto 28.7 % (25-40); Mean Corpuscular HGB Conc 34.2 % (30-36); Mean Corpuscular Hemoglobin 31.8 PG (26-34); Mean Corpuscular Volume 93.1 fL (80-100); Monocytes Absolute Auto 300 /uL (0-900); Monocytes Percent Auto 12.4 % (3-14); Neutrophils Absolute Auto 1300 /uL (1500-7000); Neutrophils Percent Auto 55.6 % (50-75); Platelet Count 217 X10^3/uL (150-400); Red Blood Cell Count 3.96 X10^6/uL (4.0-5.2); Red Cell Distribution Width 12.6 % (11.6-14.8); White Blood Cell Count 2.4 X10^3/uL (4.5-11.0)
[2022-03-16 12:01] LABS: Appearance Urine UA CLEAR; Bilirubin Urine UA NEGATIVE (NEGATIVE); Color Urine UA YELLOW; Glucose Urine UA NEGATIVE (Negative); Ketones Urine UA NEGATIVE (NEGATIVE); Leukocyte Esterase Urine UA NEGATIVE (NEGATIVE); Nitrite Urine UA NEGATIVE (Negative); Occult Blood Urine UA NEGATIVE (Negative); Protein Urine UA NEGATIVE (Negative); Specific Gravity Urine UA <=1.005 (1.000-1.035); Urobilinogen Urine UA 0.2 E.U./dL (0.2)
[2022-03-16 12:05] LABS: Bacteria Urine None Seen; Culture Indicated Urine Cult Not Indicated; RBC Urine None Seen (0-5/HPF); Urine Comments Microscopic Normal; WBC Urine None Seen (0-5/HPF)
[2022-03-16 12:22] LABS: Erythrocyte Sedimentation Rate 24 MM/HR (0-20)
[2022-03-16 12:32] LABS: Creatinine Urine Random 15.2 mg/dL
[2022-03-16 12:36] LABS: Alanine Aminotransferase 29 IU/L (<35); Albumin 4.5 g/dL (3.5-5.0); Albumin Globulin Ratio 1.2 (1.0-2.8); Alkaline Phosphatase 51 U/L (38-126); Aspartate Aminotransferase 33 IU/L (14-36); BUN Creatinine Ratio 14.9 (6-22); Bilirubin Total 0.4 mg/dL (0.2-1.3); Blood Urea Nitrogen 10 mg/dL (7-17); C-Reactive Protein Quant < 0.5 mg/dL (<1.0); Carbon Dioxide 28 mmol/L (22-32); Chloride 97 mmol/L (98-107); Estimated Glomerular Filt Rate > 60 mL/min (>60); Globulin 3.8 g/dL (1.7-4.1); Glucose 83 mg/dL (80-110); HEMOLYSIS < 15 (0-50); Potassium 3.6 mmol/L (3.4-5.1); Sodium 136 mmol/L (137-145); Total Protein 8.3 g/dL (6.3-8.2)
[2022-03-16 12:37] LABS: Microalbumin Urine Random < 0.6 mg/dL (0-1.6)
[2022-03-16 12:38] LABS: Rheumatoid Factor 9.4 IU/mL (<12.0)
[2022-03-17 09:09] LABS: Complement C3 102 mg/dL (82-167); Immunoglobulin A 176 mg/dL (87-352); Immunoglobulin G, Quantitative 1362 mg/dL (586-1602); Immunoglobulin M, Quantitative 99 mg/dL (26-217)
[2022-03-18 13:42] LABS: Albumin 4.2 g/dL (2.9-4.4); Alpha 1 Globulin 0.3 g/dL (0.0-0.4); Alpha 2 Globulin 0.8 g/dL (0.4-1.0); Beta 1 Globulin 0.9 g/dL (0.7-1.3); Gamma Globulin 1.2 g/dL (0.4-1.8); Protein, Total 7.3 g/dL (6.0-8.5)
[2022-03-18 16:04] LABS: M-Spike % Not Observed % (Not Observed); Urine Total Protein <4.0 mg/dL (Not Estab.)
== END ==
PROVIDERS: PCP Family Medicine; Referring Provider Family Medicine; Visit Provider Family Medicine
DX: B02.29 Other postherpetic nervous system involvement (principal); D70.8 Other neutropenia; E87.1 Hypo-osmolality and hyponatremia; I73.00 Raynaud's syndrome without gangrene; M35.00 Sjogren syndrome, unspecified; R31.9 Hematuria, unspecified; R76.8 Other specified abnormal immunological findings in serum; R77.8 Other specified abnormalities of plasma proteins; R79.89 Other specified abnormal findings of blood chemistry; Z51.81 Encounter for therapeutic drug level monitoring; Z79.899 Other long term (current) drug therapy
CPT/HCPCS: 36415; 80053; 81001; 82043; 82570; 82784; 84155; 84156; 84165; 84166; 85025; 85651; 86140; 86160; 86430

== ENCOUNTER → 2022-08-17 08:42 | Outpatient (CLI) | payer OTHER, SELFPAY ==
[2022-08-17 20:52] LABS: Add Manual Diff / Slide Review NO; Basophils Absolute Auto 0 /uL (0-100); Basophils Percent Auto 0.7 % (0-2); Eosinophils Absolute Auto 100 /uL (0-450); Hemoglobin 13.1 g/dL (12.0-16.0); Lymphocytes Absolute Auto 500 /uL (1100-4500); Lymphocytes Percent Auto 19.8 % (25-40); Mean Corpuscular HGB Conc 33.6 % (30-36); Mean Corpuscular Hemoglobin 31.4 PG (26-34); Mean Corpuscular Volume 93.4 fL (80-100); Monocytes Absolute Auto 400 /uL (0-900); Monocytes Percent Auto 13.7 % (3-14); Neutrophils Absolute Auto 1600 /uL (1500-7000); Neutrophils Percent Auto 61.8 % (50-75); Platelet Count 198 X10^3/uL (150-400); Red Blood Cell Count 4.18 X10^6/uL (4.0-5.2); Red Cell Distribution Width 13.2 % (11.6-14.8); White Blood Cell Count 2.6 X10^3/uL (4.5-11.0)
[2022-08-17 20:57] LABS: Alanine Aminotransferase 36 IU/L (<35); Albumin 4.2 g/dL (3.5-5.0); Albumin Globulin Ratio 1.3 (1.0-2.8); Alkaline Phosphatase 46 U/L (38-126); Aspartate Aminotransferase 38 IU/L (14-36); BUN Creatinine Ratio 19.7 (6-22); Bilirubin Total 0.3 mg/dL (0.2-1.3); Blood Urea Nitrogen 13 mg/dL (7-17); C-Reactive Protein Quant < 0.5 mg/dL (<1.0); Calcium 9.4 mg/dL (8.4-10.2); Carbon Dioxide 31 mmol/L (22-32); Chloride 97 mmol/L (98-107); Estimated Glomerular Filt Rate > 60 mL/min (>60); Globulin 3.3 g/dL (1.7-4.1); Glucose 92 mg/dL (80-110); HEMOLYSIS < 15 (0-50); Sodium 134 mmol/L (137-145); Total Protein 7.5 g/dL (6.3-8.2)
[2022-08-17 21:00] LABS: Rheumatoid Factor 13.8 IU/mL (<12.0)
[2022-08-17 21:25] LABS: Erythrocyte Sedimentation Rate 14 MM/HR (0-20)
[2022-08-17 22:19] LABS: Creatinine Urine Random 20.5 mg/dL
[2022-08-17 22:29] LABS: Microalbumin Urine Random < 0.6 mg/dL (0-1.6)
[2022-08-20 05:22] LABS: Complement C3 114 mg/dL (82-167); Immunoglobulin A 179 mg/dL (87-352)
[2022-08-21 06:38] LABS: Cardiolipin Ab IgG <9 GPL U/mL (0-14); Cardiolipin Ab IgM <9 MPL U/mL (0-12)
== END ==
PROVIDERS: PCP Family Medicine; Visit Provider Family Medicine
DX: I73.00 Raynaud's syndrome without gangrene (principal); M35.00 Sjogren syndrome, unspecified
CPT/HCPCS: 80053; 82043; 82570; 82784; 85025; 85651; 86140; 86160; 86430

== ENCOUNTER → 2022-08-26 12:16 | Outpatient (CLI) | payer OTHER, SELFPAY ==
--- NOTE | 2022-08-26 12:20 | DI.US.S_ITS ---
PROCEDURE: US SOFT TISSUE HEAD AND NECK INDICATIONS: Localized swelling, mass and lump, neck TECHNIQUE: Real-time scanning was performed of the neck region of interest, with image documentation. COMPARISON: None. FINDINGS: At the clinical area of concern in the left parotid gland, there is an irregular hypoechoic lesion measuring 0.9 x 0.5 x 0.5 cm. A small 1 mm calcification is seen centrally. No internal vascularity is seen. IMPRESSION: Irregular 0.9 cm hypoechoic lesion at the clinical area of concern may represent a complicated cyst or lymph node versus soft tissue mass. Recommend clinical correlation. MRI could be considered for further evaluation if indicated clinically. Approved by: Javier Wilkins M.D. on 08/26/2022 at 15:05
== END ==
PROVIDERS: PCP Family Medicine; Referring Provider Internal Medicine Rheumatology; Visit Provider Internal Medicine Rheumatology
DX: R22.1 Localized swelling, mass and lump, neck (principal); M35.01 Sjogren syndrome with keratoconjunctivitis; M54.2 Cervicalgia
CPT/HCPCS: 76536

== ENCOUNTER → 2022-09-02 14:46 | Outpatient (CLI) | payer OTHER, SELFPAY ==
--- NOTE | 2022-09-02 14:48 | DI.MRI.S_ITS ---
PROCEDURE: MR ORBITS FACE NECK WO/W CON INDICATIONS: complex parotid cyst TECHNIQUE: Sagittal/axial/coronal T1 spin echo and STIR. After the administration of contrast, axial/coronal/sagittal T1 fast spin echo with fat saturation through the neck. COMPARISON: [facility], , US SOFT TISSUE HEAD AND NECK, 08/26/2022, 12:27. FINDINGS: Image quality: Excellent. Lymph nodes: No enlarged nodes are seen throughout the neck. Small nonenlarged level 2A node on the left measures 1.0 x 0.6 cm Vessels: Visualized vasculature appears normal, with normal flow voids and enhancement. Neck spaces: The oropharynx, nasopharynx and pharynx are unremarkable, without mucosal lesions seen. Vocal cords, false vocal cords, pyriform sinuses, epiglottis, vallecula, and tongue base all appear normal. Extramucosal spaces of the neck also appear unremarkable. Glands: The parotid and submandibular glands appear normal. Thyroid gland unremarkable. Just superficial to left superficial lobe parotid gland, there is a small nodular density which does show enhancement measuring approximately 7 x 5 mm, corresponding with the finding on the prior ultrasound Miscellaneous: Visualized brain and orbits appear normal. Lung apices appear clear. Superficial soft tissues appear normal. Visualized sinuses and mastoids appear clear. Bones: Marrow has normal overall signal. IMPRESSION: Small nonspecific solid enhancing nodule just superficial to the left parotid corresponding with the prior ultrasound. Consider ultrasound-guided percutaneous biopsy Approved by: Moise Yanez M.D. on 09/02/2022 at 15:42
== END ==
PROVIDERS: PCP Family Medicine; Referring Provider Family Medicine; Visit Provider Family Medicine
DX: K11.6 Mucocele of salivary gland (principal)
CPT/HCPCS: 70543; A9579

== ENCOUNTER → 2022-09-23 08:40 | Outpatient (CLI) | payer OTHER, SELFPAY ==
--- NOTE | 2022-09-23 | DI.US.S_ITS ---
PROCEDURE: US SOFT TISSUE HEAD AND NECK INDICATIONS: LEFT INFERIOR EAR LUMP - CONSULT FOR BIOPSY TECHNIQUE: Real-time scanning was performed of the neck region of interest, with image documentation. COMPARISON: [facility], , US SOFT TISSUE HEAD AND NECK, 08/26/2022, 12:27. FINDINGS: Targeted ultrasound of the left preauricular region demonstrates similar size and appearance of the hypoechoic lesion just superficial to the parotid gland. This lesion measures approximately 1.0 x 0.4 x 0.6 centimeters, previously 0.9 x 0.5 x 0.5 centimeters. This lesion has a central hyperechoic region with associated blood flow. Overall, findings have an appearance of a benign lymph node. There is surrounding vascularity. After discussion with the patient, ultrasound-guided biopsy was not performed on today's examination as the lesion has features of a benign lymph node, without significant interval growth in the interim. Additionally, the presence of adjacent vascularity and the small size of the nodularity would make for a risky core biopsy. IMPRESSION: No biopsy performed on the pre-auricular lymph node. Recommend follow-up in 3 months, followed by additional follow-up in 1 year is recommended to ensure stability. If there is a significant increase in size, biopsy is warranted. Dictated by: Azar Nguyen M.D. on 09/23/2022 at 11:52 Approved by: Azar Nguyen M.D. on 09/23/2022 at 11:56
== END ==
PROVIDERS: PCP Family Medicine; Referring Provider Family Medicine; Visit Provider Family Medicine
DX: R22.1 Localized swelling, mass and lump, neck
CPT/HCPCS: 76536

== ENCOUNTER → 2022-12-24 13:51 | Outpatient (CLI) | payer OTHER, SELFPAY ==
--- NOTE | 2022-12-24 14:11 | DI.MG.S_ITS ---
Patient Name: ROCHELLE JOHNSON date: 1960 Sex: F Attending Physician: Ryan Indications: Date: 12/24/2022 19:50 At the request of: ZAN YOUNG Procedure: MM screening mammo BI BILATERAL DIGITAL SCREENING MAMMOGRAM 3D/2D WITH CAD: 12/24/2022 CLINICAL: Routine screening. Comparison is made to exams dated: 10/11/2020 mammogram, 08/01/2019 mammogram - [facility], and 01/14/2017 mammogram - [facility] [place]. Both breasts are extremely dense, which lowers the sensitivity of mammography (category d />75% glandular tissue). Current study was also evaluated with a Computer Aided Detection (CAD) system. No significant masses, calcifications, or other findings are seen in either breast. There has been no significant interval change. IMPRESSION: NEGATIVE There is no mammographic evidence of malignancy. A 1 year screening mammogram is recommended. Based on the Tyrer Cuzick model (a risk assessment model) the patient?s lifetime risk is 17.7% and her 10 year risk is 7.6%. According to the ACR, ACS, and NCCN guidelines, an annual breast MRI exam along with mammogram is recommended if the patient?s lifetime risk is 20% or greater. This exam was interpreted at Station ID: [id number]. Continued Report - Page 2 of 2 Patient Name: ROCHELLE JOHNSON date: 1960 Sex: F Attending Physician: Ryan Indications: Date: 12/24/2022 19:50 At the request of: ZAN YOUNG Procedure: MM screening mammo BI NOTE: For mammograms, a report in lay terms will be sent to the patient. Approximately 15% of breast malignancies will not be visualized mammographically. In the management of a palpable breast mass, a negative mammogram must not discourage biopsy of a clinically suspicious lesion. Electronically Signed By: Zuly faria/angelina:12/24/2022 19:50:56 letter sent: Normal Exam ACR BI-RADS Category 1: Negative [id number]
== END ==
PROVIDERS: PCP Family Medicine; Referring Provider Family Medicine; Visit Provider Family Medicine
DX: Z12.31 Encounter for screening mammogram for malignant neoplasm of breast (principal)
CPT/HCPCS: 77063; 77067

== ENCOUNTER → 2023-01-13 13:16 | Outpatient (CLI) | payer OTHER, SELFPAY ==
--- NOTE | 2023-01-13 13:17 | DI.US.S_ITS ---
PROCEDURE: US PERIPH VENOUS LOW EXTREM LT INDICATIONS: left calf pain TECHNIQUE: Real-time imaging, as well as color and pulse Doppler interrogation, were performed of the lower extremity deep veins from the inguinal ligament to the popliteal fossa, with documentation of the visualized calf veins. COMPARISON: None. FINDINGS: The common femoral, femoral, popliteal, and the visualized calf veins are normally compressible, and free of intraluminal thrombus. Color and pulse Doppler demonstrate normal phasic intraluminal flow. There is normal augmentation response to distal compression maneuver. IMPRESSION: No findings of lower extremity deep venous thrombosis. Dictated by: Noah Santo M.D. on 01/13/2023 at 12:51 Approved by: Noah Santo M.D. on 01/13/2023 at 12:51
== END ==
PROVIDERS: PCP Family Medicine; Referring Provider Physician Assistant Medical; Visit Provider Physician Assistant Medical
DX: I80.9 Phlebitis and thrombophlebitis of unspecified site (principal); M79.662 Pain in left lower leg
CPT/HCPCS: 93971

== ENCOUNTER → 2023-09-10 13:29 | Outpatient (CLI) | payer OTHER, SELFPAY ==
--- NOTE | 2023-09-10 13:30 | DI.MG.S_ITS ---
UNILATERAL LEFT DIGITAL DIAGNOSTIC MAMMOGRAM 3D/2D: 09/10/2023 CLINICAL: Left breast pain. Comparison is made to exams dated: 12/24/2022 mammogram, 10/11/2020 mammogram, 08/01/2019 mammogram, 10/11/2020 ultrasound, 08/01/2019 ultrasound - [facility], and 01/14/2017 mammogram - [facility]. The left breast is extremely dense, which lowers the sensitivity of mammography (category d />75% glandular tissue). No significant masses, calcifications, or other findings are seen in the breast. IMPRESSION: NEGATIVE There is no abnormality seen in the left breast to correspond with the diffuse pain, however, clinical followup is recommended. There is no mammographic evidence of malignancy. Return to annual mammogram screening schedule is recommended. Future imaging is recommended as follows: 12/25/2023 screening mammogram. Based on the Tyrer Cuzick model (a risk assessment model) the patient's lifetime risk is 17.7% and her 10 year risk is 7.6%. According to the ACR, ACS, and NCCN guidelines, an annual breast MRI exam along with mammogram is recommended if the patient's lifetime risk is 20% or greater. This exam was interpreted at Station ID: [id number]. NOTE: For mammograms, a report in lay terms will be sent to the patient. Approximately 15% of breast malignancies will not be visualized mammographically. In the management of a palpable breast mass, a negative mammogram must not discourage biopsy of a clinically suspicious lesion. Electronically Signed By: Javier ely/angelina:09/10/2023 16:35:16 letter sent: Clinical Evaluation ACR BI-RADS Category 1: Negative 3341F
== END ==
LOC: MAMMO 13:29
PROVIDERS: PCP Family Medicine; Referring Provider Family Medicine; Visit Provider Family Medicine
DX: N64.4 Mastodynia (principal); N60.19 Diffuse cystic mastopathy of unspecified breast
CPT/HCPCS: 77065; G0279

== ENCOUNTER → 2023-11-30 09:27 | Outpatient (CLI) | payer OTHER, SELFPAY ==
[2023-11-30 19:58] LABS: BUN Creatinine Ratio 9.9 (6-22); Blood Urea Nitrogen 7 mg/dL (7-17); Carbon Dioxide 28 mmol/L (22-32); Chloride 104 mmol/L (98-107); Cholesterol 207 mg/dL (140-199); Estimated Glomerular Filt Rate > 60 mL/min (>60); Glucose 88 mg/dL (80-110); HDL Cholesterol 84 mg/dL (40-60); HEMOLYSIS < 15 (0-50); LDL Cholesterol Calculated 114 mg/dL (<100); Potassium 4.2 mmol/L (3.4-5.1); Sodium 137 mmol/L (137-145); Triglycerides 43 mg/dL (35-150)
[2023-11-30 20:18] LABS: Vitamin D 25 Hydroxy (D3) 22.6 ng/mL (30.0-100.0)
[2023-11-30 21:04] LABS: Folate 18.3 ng/mL (2.76-20.0); Vitamin B12 Reflex MMA if <400 303 pg/mL (239-931)
[2023-12-03 21:35] LABS: Methylmalonic Acid,Serum 115 nmol/L (0-378)
== END ==
PROVIDERS: PCP Family Medicine; Referring Provider Family Medicine; Visit Provider Family Medicine
DX: M35.00 Sjogren syndrome, unspecified (principal); E87.1 Hypo-osmolality and hyponatremia; M06.9 Rheumatoid arthritis, unspecified; Z13.6 Encounter for screening for cardiovascular disorders; Z13.29 Encounter for screening for other suspected endocrine disorder
CPT/HCPCS: 80048; 80061; 82306; 82607; 82746; 83921; 84443

== ENCOUNTER → 2024-08-04 15:23 | Outpatient (CLI) | payer OTHER, SELFPAY ==
--- NOTE | 2024-08-04 15:27 | DI.MG.S_ITS ---
MM screening mammo BI: 08/04/2024. BI-RADS: 1 CLINICAL: 63-year old female for bilateral screening mammogram. Tyrer-Cuzick lifetime risk of 9.3%. No personal or first-degree family history of breast cancer. The patient had a prior right breast biopsy. PRIOR EXAMS 09/10/2023, 12/24/2022, 10/11/2020, 08/01/2019, 01/14/2017, 03/26/2015. MAMMOGRAPHY TECHNIQUE: 2D and 3D (tomosynthesis) digital mammographic views obtained, with additional images as needed for full coverage. Current study was also evaluated with a Computer Aided Detection (CAD) system. DENSITY D. The breasts are extremely dense, which lowers the sensitivity of mammography. MAMMOGRAPHY FINDINGS Bilateral: No suspicious mass, asymmetry, microcalcification, or other abnormality seen. No significant change from comparison. IMPRESSION: * No evidence of malignancy. RECOMMENDATIONS Bilateral * Annual screening mammography. OVERALL ASSESSMENT CATEGORY BI-RADS-1: Negative. The [employer] recommends annual screening mammography beginning at age 40 for women with average risk of breast cancer. ELECTRONICALLY SIGNED: Poonam Martinez M.D. on 08/07/2024 at 08:27:56 AM PT Interpreting Station ID: [id number]
== END ==
PROVIDERS: PCP Family Medicine; Referring Provider Family Medicine; Visit Provider Family Medicine
DX: Z12.31 Encounter for screening mammogram for malignant neoplasm of breast (principal); R92.343 Mammographic extreme density, bilateral breasts
CPT/HCPCS: 77063; 77067